=== PATIENT | male | born 1970 | race Caucasian/White ===

== ENCOUNTER → 2016-03-31 | Outpatient (CLI) | payer BC ==
--- NOTE | 2016-03-31 22:29 | PN ---
This patient is coming to see me in follow-up regarding his obstructive sleep apnea treatment. During his last evaluation the patient was reporting suboptimal treatment. I gave this patient an A/trial on his CPAP machine and upon follow-up his P90 pressure was calculated to be at 11.3 and his average CPAP use is 7 hours and 13 minutes. He is feeling better and based on that I will switch this patient from an A/trial into a regular CPAP therapy at a pressure of 12 cm of water. I also checked the patient's set up. He has a perforated hose and he will need new supplies. He is also utilizing an AirFit N10 nose mask and this will be refilled. His current King score is at 7. BP is 133/91, pulse is 88, respirations 16, temperature 98.1, saturation 97% on room air. Weight 335. Height is 5 feet 8 inches. BMI is 50.9. GENERAL APPEARANCE: Obese, calm, comfortable. HEENT: Short neck, crowding posterior pharynx. There is no goiter, neck masses. LUNGS: Diminished breath sounds bilaterally; otherwise clear. Heart sounds are regular rate and rhythm. Normal S1, S2. No ( ). No murmurs. ABDOMEN: Soft, nontender. No organomegaly. EXTREMITIES: No edema. No cyanosis or clubbing. IMPRESSION: 1. Obstructive sleep apnea, status post successful A trial with CPAP. 2. Obesity with a body mass index of 50.9. 3. Hypersomnia secondary to obstructive sleep apnea, improved. King score is down to 7. PLAN: 1. Treat this patient with CPAP at a pressure of 12. 2. Encourage weight loss. 3. Orders CPAP supplies through [employer] and the patient will be given filters, hose and airfit 10 mask. 4. The patient will see me back in a year's time in follow-up.
== END | disposition home or self-care (01) ==